=== PATIENT | female | born 1985 | race American Indian/Alaskan Native ===

== ENCOUNTER 2017-11-21 12:12 | Emergency (ER) | payer OTHER ==
[2017-11-21 12:19] VITALS: BP 146/85
[2017-11-21] MEDS ORDERED: Tetracaine HCl/PF 0.5% 4 ML Bottle EYEBOTH ONE (13:00)
[2017-11-21] MEDS ORDERED: Fluorescein 1 MG Ophth Strip EYERT ONE (13:01)
--- NOTE | 2017-11-21 19:05 | EDM.PDOC ---
Scribed by Kiah Alexander 11/21/17 6611 for Brooke Ovalle NP ED HPI GENERAL MEDICAL PROBLEM - General Chief Complaint: Eye Problems Stated Complaint: RT EYE Time Seen by Provider: 11/21/17 12:54 Source of Information: Reports: Patient, RN, RN Notes Reviewed History Limitations: Reports: No Limitations - History of Present Illness INITIAL COMMENTS - FREE TEXT/NARRATIVE: Patient presents to ER with complaint of right eye pain. She states she woke up yesterday. Patient admits to wearing contacts, not in now. She denies problems prior with eyes. She has had light sensitivity and swelling to right eye. No fever, chills, nausea, vomiting or diarrhea. Onset Date: 11/20/17 Duration: Getting Worse Location: Reports: Other (right eye) Quality: Reports: Ache Severity: Moderate Improves with: Reports: None Worsens with: Reports: None Associated Symptoms: Reports: No Other Symptoms Right Eye Pain Score (Numeric/FACES): 10 - Related Data Allergies Allergy/AdvReac Type Severity Reaction Status Date / Time No Known Allergies Allergy Verified 11/21/17 12:16 Home Meds: Home Meds Ortho Patch 1 patch TD WEEKLY 09/13/16 [History] Past Medical History Cardiovascular History: Reports: None Respiratory History: Reports: None Gastrointestinal History: Reports: None Genitourinary History: Reports: None 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: , Other (See Below) Other OB/BYN History: abnormal pap with biobsy done Musculoskeletal History: Reports: Other (See Below) Other Musculoskeletal History: hx fx leg Neurological History: Reports: None Psychiatric History: Reports: None Endocrine/Metabolic History: Reports: None Hematologic History: Reports: Anemia Oncologic (Cancer) History: Reports: None Dermatologic History: Reports: None - Past Surgical History HEENT Surgical History: Reports: Oral Surgery Female Surgical History: Reports: Section Social & Family History - Family History Family Medical History: Noncontributory - Tobacco Use Smoking Status *Q: Heavy Tobacco Smoker Years of Tobacco use: 10 Packs/Tins Daily: 0.5 Used Tobacco, but Quit: No Month/Year Tobacco Last Used: 06/2013 - Caffeine Use Caffeine Use: Reports: Coffee - Recreational Drug Use Recreational Drug Use: No ED ROS GENERAL - Review of Systems Review Of Systems: ROS reveals no pertinent complaints other than HPI. ED EXAM GENERAL W FULL EYE - Physical Exam Exam: See Below Exam Limited By: No Limitations Eye Exam: Right Eye: Other (right eye green drainage,tearing, conjunctival erythema and injection.) Ears: Normal External Exam, Normal Canal, Hearing Grossly Normal, Normal TMs Nose: Normal Inspection, Normal Mucosa, No Blood Throat/Mouth: Normal Inspection, Normal Lips, Normal Teeth, Normal Gums, Normal Oropharynx, Normal Voice, No Airway Compromise Head: Atraumatic, Normocephalic Neck: Normal Inspection, Supple, Non-Tender, Full Range of Motion Respiratory/Chest: No Respiratory Distress, Lungs Clear, Normal Breath Sounds, No Accessory Muscle Use, Chest Non-Tender Cardiovascular: Normal Peripheral Pulses, Regular Rate, Rhythm, No Edema, No Gallop, No JVD, No Murmur, No Rub GI/Abdominal: Normal Bowel Sounds, Soft, Non-Tender, No Organomegaly, No Distention, No Abnormal Bruit, No Mass (Female) Exam: Deferred Back Exam: Normal Inspection, Full Range of Motion, NT Extremities: Normal Inspection, Normal Range of Motion, Non-Tender, Normal Capillary Refill, No Pedal Edema Neurological: Alert, Oriented, CN II-XII Intact, Normal Cognition, Normal Gait, Normal Reflexes, No Motor/Sensory Deficits Psychiatric: Anxious, Tearful Skin Exam: Warm, Dry, Intact, Normal Color, No Rash Lymphatic: No Adenopathy Course - Vital Signs Last Recorded V/S: Last Vital Signs Temp 97.6 F 11/21/17 12:16 Pulse 102 H 11/21/17 12:16 Resp 18 11/21/17 12:16 BP 146/85 H 11/21/17 12:16 Pulse Ox 100 11/21/17 12:16 - Orders/Labs/Meds Meds: Medications Discontinued Medications Generic Name Dose Route Start Last Admin Trade Name Freq PRN Reason Stop Dose Admin Fluorescein Sodium 1 mg 11/21/17 13:01 11/21/17 13:29 Ful-Geetha EYERT 11/21/17 13:02 1 mg ONETIME ONE Administration Tetracaine HCl 1 ml 11/21/17 13:00 11/21/17 13:30 Tetracaine 0.5% Steri-Unit Neda EYEBOTH 11/21/17 13:01 1 ml ASDIRECTED ONE Administration - Re-Assessments/Exams Free Text/Narrative Re-Assessment/Exam: 11/21/17 19:03 [facility] called and stated that they do not carry the Cyclopentolate. She states they can order it and it will be in on Wednesday. In the meantime, diclofenac opth drops were ordered for today. Patient was also instructed to take Tylenol as directed for pain. 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 11/21/17 19:04 Departure - Departure Time of Disposition: 13:29 Disposition: Home, Self-Care 01 Condition: Fair Clinical Impression: Corneal abrasion Qualifiers: Encounter type: initial encounter Laterality: right Qualified Code(s): S05.01XA - Injury of conjunctiva and corneal abrasion without foreign body, right eye, initial encounter Corneal ulcer Qualifiers: Laterality: right Qualified Code(s): H16.001 - Unspecified corneal ulcer, right eye - Discharge Information Instructions: Corneal Ulcer, Eye Foreign Body, [id number], Corneal Abrasion, [id number] Forms: ED Department Discharge Additional Instructions: RX: Gentamycin, Cyclopentolate opth Take drops as prescribed Follow up with your eye care facility dipak tomorrow I have read and agree with the documentation that has been completed regarding this visit. By signing this record, I attest that the documentation was completed in my physical presence and is an accurate record of the encounter.
== END 2017-11-21 13:36 | disposition home or self-care (01) ==
LOC: DL.ED 12:12
DX: S05.01XA Injury of conjunctiva and corneal abrasion without foreign body, right eye, initial encounter (principal); H16.001 Unspecified corneal ulcer, right eye; F17.210 Nicotine dependence, cigarettes, uncomplicated; X58.XXXA Exposure to other specified factors, initial encounter
CPT/HCPCS: 99283; A9270-GY

== ENCOUNTER 2018-12-27 20:36 | Emergency (ER) | payer OTHER ==
[2018-12-27 20:45] VITALS: BP 170/92
[2018-12-27] MEDS ORDERED: Lidocaine 1% 30 ML SDV INJECT ONE (20:51)
[2018-12-27] MEDS ORDERED: Bacitracin Oint 1 GM U/D Packet TOP ONE (20:51)
== END 2018-12-27 21:47 | disposition left against medical advice (07) ==
LOC: DL.ED 20:36
DX: Z53.21 Procedure and treatment not carried out due to patient leaving prior to being seen by health care provider (principal)

== ENCOUNTER 2021-01-02 20:06 | Emergency (ER) | payer BC | END 2021-01-02 22:52 | disposition left against medical advice (07) | LOC: DL.ED 20:06 | DX: Z53.21 Procedure and treatment not carried out due to patient leaving prior to being seen by health care provider (principal) | CPT/HCPCS: 99283 ==

== ENCOUNTER → 2022-02-10 | Day surgery (SDC) | payer BC, OTHER ==
[~2022-02-10] MED LIST: Dextrose 5%-0.45% NaCl 1,000 ML IV SCH; Midazolam 1 MG/ML 2 ML SDV IV ONE; Midazolam 1 MG/ML 2 ML SDV ONE; Sodium Chloride 0.9% 10 ML Syringe FLUSH PRN; Sodium Chloride 0.9% 10 ML Syringe FLUSH SCH; fentaNYL 100 MCG/2 ML SDV IV ONE; fentaNYL 100 MCG/2 ML SDV ONE
[2022-02-10 11:01] VITALS: BP 136/78; PULSE 68
== END | disposition home or self-care (01) ==
LOC: DL.ENDO 06:56
PROVIDERS: ATTEND Internal Medicine Gastroenterology
DX: K31.89 Other diseases of stomach and duodenum (principal); F41.1 Generalized anxiety disorder; K21.9 Gastro-esophageal reflux disease without esophagitis; K52.9 Noninfective gastroenteritis and colitis, unspecified; F17.210 Nicotine dependence, cigarettes, uncomplicated; Z88.8 Allergy status to other drugs, medicaments and biological substances; Z87.59 Personal history of other complications of pregnancy, childbirth and the puerperium; Z90.49 Acquired absence of other specified parts of digestive tract; Z01.812 Encounter for preprocedural laboratory examination; Z20.822 Contact with and (suspected) exposure to COVID-19
CPT/HCPCS: 81025; 87077; J2250; J3010; J7042; U0002

== ENCOUNTER 2022-02-13 05:44 | Day surgery (SDC) | payer BC, OTHER ==
[~2022-02-13 05:44] MED LIST changes: -Dextrose 5%-0.45% NaCl 1,000 ML IV SCH; -Midazolam 1 MG/ML 2 ML SDV IV ONE; -Midazolam 1 MG/ML 2 ML SDV ONE; -Sodium Chloride 0.9% 10 ML Syringe FLUSH PRN; -fentaNYL 100 MCG/2 ML SDV IV ONE; -fentaNYL 100 MCG/2 ML SDV ONE
[2022-02-13] MEDS ORDERED: fentaNYL 100 MCG/2 ML SDV IV ONE ×7 (05:45→06:39)
[2022-02-13] MEDS ORDERED: Midazolam 1 MG/ML 2 ML SDV IV ONE ×8 (05:45→06:45)
[2022-02-13] MEDS ORDERED: Dextrose 5%-0.45% NaCl 1,000 ML IV SCH (06:00)
[2022-02-13] MEDS ORDERED: Sodium Chloride 0.9% 10 ML Syringe FLUSH PRN (06:00)
[2022-02-13] MEDS ORDERED: Midazolam 1 MG/ML 2 ML SDV ONE (06:07)
[2022-02-13] MEDS ORDERED: fentaNYL 100 MCG/2 ML SDV ONE (06:08)
[2022-02-13 09:47] VITALS: BP 131/93; PULSE 71
== END 2022-02-13 09:04 | disposition home or self-care (01) ==
LOC: DL.ENDO 05:44
PROVIDERS: ATTEND Internal Medicine Gastroenterology
DX: K64.4 Residual hemorrhoidal skin tags (principal); K21.9 Gastro-esophageal reflux disease without esophagitis; F41.1 Generalized anxiety disorder; Z88.8 Allergy status to other drugs, medicaments and biological substances; Z90.49 Acquired absence of other specified parts of digestive tract; Z98.891 History of uterine scar from previous surgery
CPT/HCPCS: 45385; J2250; J3010; J7042

== ENCOUNTER 2023-02-10 01:22 | Emergency (ER) | payer BC, OTHER ==
[2023-02-10] MEDS ORDERED: Sodium Chloride 0.9% 10 ML Syringe FLUSH PRN (01:28)
[2023-02-10 01:36] LABS: BASOPHILS PERCENT AUTO 0.3 % (0.0-1.0); HEMATOCRIT 39.6 % (37.0-47.0); HEMOGLOBIN 13.7 g/dL (12.0-16.0); LYMPHOCYTES PERCENT AUTO 29.7 % (20.5-50.1); MEAN CORPUSCULAR HEMOGLOBIN 30.5 pg (27.0-34.0); MEAN CORPUSCULAR HGB CONC 34.6 g/dL (33.0-35.0); MEAN CORPUSCULAR VOLUME 88.2 fL (80-100); PLATELET COUNT,PLT 279 10^3/uL (150-450); RED BLOOD CELL COUNT 4.49 10^6/uL (4.2-5.4); WHITE BLOOD CELL COUNT,WBC 9.5 10^3/uL (5.0-10.0)
[2023-02-10 01:56] LABS: ANION GAP 11.9 mEq/L (7-13); BILIRUBIN TOTAL 0.5 mg/dL (0.2-1.0); BLOOD UREA NITROGEN,BUN 13 mg/dL (7-18); BUN/CREATININE RATIO 15.5 (No establ ref range); CALCIUM 8.1 mg/dL (8.5-10.1); CARBON DIOXIDE,CO2 26 mmol/L (21-32); CHLORIDE,CL 102 mmol/L (98-107); CREATININE 0.84 mg/dL (0.55-1.02); EST CRCL DRUG DOSING (CG) 85.01 mL/min; GLUCOSE RANDOM 95 mg/dL (70-99); POTASSIUM,K 3.9 mmol/L (3.5-5.1); PROTEIN TOTAL,TP 6.3 g/dL (6.4-8.2); SODIUM,NA 136 mmol/L (136-145)
[2023-02-10 01:57] LABS: A/G RATIO 0.91; ALANINE AMINOTRANSFERASE,ALT 17 U/L (14-59); ALKALINE PHOSPHATASE 87 U/L (46-116); AMYLASE 50 U/L (25-115); ASPARTATE AMNIOTRANSFERASE,AST 16 U/L (15-37); C-REACTIVE PROTEIN 1.7 mg/dL (0.0-0.9); ESTIMATED GFR 91 mL/min (>=60); ETHANOL BLOOD MEDICAL < 3 mg/dL (0); LIPASE 81 U/L (73-393)
[2023-02-10 02:03] LABS: HCG QUALITATIVE,SERUM NEGATIVE (NEGATIVE)
[2023-02-10] MEDS ORDERED: Iopamidol 612 MG/ML 100 ML Bottle IVPUSH ONE (02:04)
[2023-02-10] MEDS ORDERED: fentaNYL 100 MCG/2 ML SDV IVPUSH ONE ×2 (02:07→03:39)
[2023-02-10 03:51] LABS: APPEARANCE,URINE CLEAR (CLEAR); BILIRUBIN,URINE NEGATIVE (NEGATIVE); COLOR,URINE YELLOW (YELLOW); GLUCOSE,URINE NEGATIVE (NEGATIVE); KETONES,URINE NEGATIVE (NEGATIVE); LEUKOCYTE ESTERASE,URINE NEGATIVE (NEGATIVE); NITRITE,URINE NEGATIVE (NEGATIVE); OCCULT BLOOD,URINE TRACE-INTACT (NEGATIVE); PH,URINE 5.5 (5.0-9.0); PROTEIN,URINE NEGATIVE (NEGATIVE); UROBILINOGEN,URINE 0.2 mg/dL (0.2-1.0)
[2023-02-10 03:53] LABS: AMPHETAMINES,URINE NEGATIVE (NEGATIVE); BARBITURATES,URINE NEGATIVE (NEGATIVE); BENZODIAZEPINE,URINE NEGATIVE (NEGATIVE); MDMA (ECSTASY), URINE NEGATIVE (NEGATIVE); METHADONE,URINE NEGATIVE (NEGATIVE); METHAMPHETAMINES,URINE NEGATIVE (NEGATIVE); OPIATES,URINE NEGATIVE (NEGATIVE); OXYCODONE,URINE NEGATIVE (NEGATIVE); PHENCYCLIDINE,URINE NEGATIVE (NEGATIVE); TCA,URINE NEGATIVE (NEGATIVE)
[2023-02-10 04:08] LABS: AMORPHOUS SEDIMENT,URINE FEW /HPF (NOT SEEN); BACTERIA,URINE MODERATE /HPF (0-FEW/HPF); EPITHELIAL CELLS,URINE MANY /HPF (NOT SEEN); MUCUS,URINE FEW /LPF (NOT SEEN); RBC,URINE 0-5 /HPF (0-5); WBC,URINE 0-5 /HPF (0-5/HPF)
[2023-02-10] MEDS ORDERED: HYDROmorphone 1 MG/ML Syringe IVPUSH ONE (05:19)
[2023-02-10] MEDS ORDERED: Ciprofloxacin 500 MG Tab PO ONE (05:37)
[2023-02-10] MEDS ORDERED: metroNIDAZOLE 250 MG Tab PO ONE (05:37)
[2023-02-10] MEDS ORDERED: predniSONE 20 MG Tab PO ONE (05:41)
[2023-02-10 05:53] VITALS: BP 132/54; PULSE 79
[2023-02-10] MEDS ORDERED: Ondansetron 4 MG/2 ML SDV IVPUSH ONE (05:54)
[2023-02-10] MEDS ORDERED: Take Home: Ondansetron 4 MG Tab.DIS, 5 Tab Pack PO ONE (05:56)
== END 2023-02-10 06:09 | disposition home or self-care (01) ==
LOC: DL.ED 01:22
DX: K51.90 Ulcerative colitis, unspecified, without complications (principal); Z88.8 Allergy status to other drugs, medicaments and biological substances; Z79.899 Other long term (current) drug therapy
CPT/HCPCS: 36415; 74177; 80053; 80305; 80307; 81001; 82150; 83605; 83690; 84145; 84703; 85025; 86140; 96374; 96375; 96376; 99284; J1170; J2405; J3010; J7512; Q0162; Q9967; J3490